=== PATIENT | female | born 1985 | race African-American/Black ===

== ENCOUNTER 2020-07-27 12:00 | Outpatient (CLI) | payer OTHER ==
[~2020-07-27 12:00] MED LIST: ADVIL LIQUI-GE200 MG; ADVIL100 MG
== END 2020-07-27 12:05 | disposition home or self-care (01) ==
LOC: RAD 12:00
PROVIDERS: ATTEND Pediatrics
DX: M54.5 Low back pain (principal)

== ENCOUNTER 2020-10-02 10:19 | Outpatient (CLI) | payer OTHER | END 2020-10-02 10:24 | disposition home or self-care (01) | LOC: RAD 10:19 | PROVIDERS: ATTEND General Practice | DX: M41.86 Other forms of scoliosis, lumbar region (principal); M54.5 Low back pain; M54.2 Cervicalgia ==

== ENCOUNTER 2023-02-06 08:53 | Outpatient (CLI) | payer OTHER | END 2023-02-06 09:01 | disposition home or self-care (01) | LOC: SONOGRAMA 08:53 | PROVIDERS: ATTEND Internal Medicine Gastroenterology | DX: R10.9 Unspecified abdominal pain (principal) ==

== ENCOUNTER 2023-04-29 05:05 | Day surgery (SDC) | payer OTHER ==
[2023-04-22 11:05] LABS: HEMATOCRIT 30.7 % (36.0-45.00); MEAN CELL VOLUME 78.4 fL (80.00-100.00); MEAN CORPUSCULAR HGB CONC 31.6 g/dl (32.0-36.0); PLATELET COUNT 252 K/uL (150-450); RED BLOOD COUNT 3.91 M/uL (4.00-6.00)
[2023-04-22 11:06] LABS: HEMOGLOBIN 9.7 g/dL (12.0-15.00); MEAN CORPUSCULAR HEMOGLOBIN 24.8 pg (27.00-32.0)
[2023-04-22 11:06] LABS: PH,URINE 7.5 (5.0-8.0); URINE APPEARANCE Clear; URINE BILIRRUBIN Negative (NEGATIVE); URINE BLOOD Negative; URINE COLOR Yellow; URINE GLUCOSE Negative (NEGATIVE); URINE LEUKOCYTE Negative; URINE NITRATE Negative; URINE PROTEIN Trace (NEGATIVE)
[2023-04-22 11:09] LABS: URINE BACTERIA 148.6 uL (0.0-1933); URINE EPITHELIAL CELLS 5.8 uL (0.0-38.8); URINE RBC 6.7 uL (0.0-20.8)
[2023-04-22 11:14] LABS: RED CELL DISTRIBUTION WIDTH 16.5 % (11.5-14.5)
[2023-04-22 11:33] LABS: INR 1.01; PARTIAL THROMBOPLASTIN TIME 25.1 SECONDS (22.0-34.0); PROTHROMBIN TIME 10.6 SECONDS (9.0-11.5)
[2023-04-22 11:39] LABS: ALBUMIN 3.8 gm/dL (3.4-5.0); BILIRUBIN TOTAL 0.36 mg/dL (0.3-1.2); CALCIUM 8.8 mg/dL (8.5-10.1); CREATININE SERUM 0.61 mg/dL (0.55-1.02); GFR 108.63; GLOBULINA 3.4 G/DL (2.4-3.5); POTASSIUM 4.05 mEq/L (3.5-5.1); TOTAL PROTEIN 7.2 gm/dL (6.4-8.2)
[~2023-04-29] VITALS: Ht 160 cm; Wt 101.6 kg
[~2023-04-29 05:05] MED LIST changes: +ALDACTONE50 MG PO; +JARDIANCE10 MG PO; +METFOR PO
== END 2023-04-29 12:45 | disposition home or self-care (01) ==
LOC: CIR.AMB 05:05
PROVIDERS: ATTEND Specialist
DX: K80.10 Calculus of gallbladder with chronic cholecystitis without obstruction (principal); Z88.8 Allergy status to other drugs, medicaments and biological substances; Z20.822 Contact with and (suspected) exposure to COVID-19; E11.9 Type 2 diabetes mellitus without complications

== ENCOUNTER 2023-10-20 14:51 | Outpatient (CLI) | payer OTHER | END 2023-10-20 14:56 | disposition home or self-care (01) | LOC: RAD 14:51 | DX: M77.32 Calcaneal spur, left foot (principal); M77.31 Calcaneal spur, right foot ==

== ENCOUNTER → 2024-06-04 08:13 | Outpatient (CLI) | payer OTHER | END | disposition home or self-care (01) | LOC: MRI 08:13 | DX: N93.9 Abnormal uterine and vaginal bleeding, unspecified (principal); N94.9 Unspecified condition associated with female genital organs and menstrual cycle; R10.2 Pelvic and perineal pain | CPT/HCPCS: 72197; 74183 ==

== ENCOUNTER → 2024-08-02 | Outpatient (CLI) | payer OTHER | END | disposition home or self-care (01) | LOC: RAD 10:29 | DX: M72.2 Plantar fascial fibromatosis (principal) ==

== ENCOUNTER 2024-10-28 08:06 | Outpatient (CLI) | payer OTHER | END 2024-10-28 08:14 | disposition home or self-care (01) | LOC: SONOGRAMA 08:06 | DX: R10.9 Unspecified abdominal pain (principal) ==

== ENCOUNTER 2024-11-16 09:14 | Outpatient (CLI) | payer OTHER | END 2024-11-16 09:25 | disposition home or self-care (01) | LOC: MRI 09:14 | DX: N93.9 Abnormal uterine and vaginal bleeding, unspecified (principal); N94.9 Unspecified condition associated with female genital organs and menstrual cycle; R10.2 Pelvic and perineal pain | CPT/HCPCS: 72197; 74183 ==

== ENCOUNTER 2025-01-24 09:20 | Outpatient (CLI) | payer OTHER | END 2025-01-24 09:28 | disposition home or self-care (01) | LOC: TOM 09:20 | DX: K65.1 Peritoneal abscess (principal) ==